=== PATIENT | female | born 1940 | race Caucasian/White ===

== ENCOUNTER 2023-11-09 23:53 | Inpatient (IN) | payer OTHER, SELFPAY ==
[2023-11-09 19:40] VITALS: BP 130/75
[2023-11-09 19:53] VITALS: BP 92/58
[2023-11-09 20:00] VITALS: BMI 24.4
[2023-11-09 20:01] VITALS: BP 121/64
[2023-11-09 20:31] LABS: % Basophils 0.5 % (0-2); % Eosinophils 0.3 % (0-6); % Immature Granulocytes 1.9 % (0-0.5); % Lymphocytes 16.3 % (20.5-51.1); Absolute Immature Granulocytes 0.1 10^3/uL (0-0.05); Absolute Lymphocytes 0.6 10^3/uL (1.2-3.4); Absolute Monocytes 0.6 10^3/uL (0.1-0.6); Absolute Neutrophils 2.5 10^3/uL (1.4-6.5); Hematocrit 41.2 % (37.0-47.0); Hemoglobin 13.6 g/dL (12.0-16.0); Mean Corpuscular Hgb 27.8 pg (27.0-31.0); Mean Corpuscular Volume 84.3 fL (81.0-99.0); Nucleated Red Blood Cells % 0 %; Platelet Count 130 10^3/uL (130-400); Red Blood Cell Count 4.89 10^6/uL (4.20-5.40); Red Cell Dist. Width 21.2 % (11.5-14.5); White Blood Cell Count 3.7 10^3/uL (4.8-10.8)
--- NOTE | 2023-11-09 20:54 | ED.GENMED ---
History of Present Illness
General
Chief Complaint: Abdominal Symptoms
Source: patient
Exam Limitations: none
Time Seen by Provider: 11/09/23 20:47
Travel History
Have you had any contact with someone who has COVID-19?: No
Do you have any symptoms of coronavirus? Fever > 100 degrees, chills, cough, shortness of breath, sore throat, loss of taste or smell, muscle aches, or headache?: No
History of Present Illness
History of Present Illness:
See MDM
Past History
Past History
ED Past Medical History: Cancer, HTN and Hypercholesterolemia
ED Past Surgical History: Gynecological
Social History
Tobacco: Non-smoker
Alcohol: None
Phy Exam
Physical Exam
Physical Exam:
See MDM
Course
Orders/Labs/Results
Orders:
Orders
11/09/23 19:39
Electrocardiogram (*1) Urgent
Reason for Study: Abdominal Pain
EKG- Treatment ONCE
IV Insert/Care/Rem.- Treatment PRN
Urinalysis Reflex To Culture Urgent
Date Specimen was Collected: 11/09/23
Time Specimen was Collected: 19:39
11/09/23 20:18
Basic Metabolic Panel Urgent
Complete Blood Count/With Diff Urgent
Lipase Urgent
11/09/23 20:51
0.9% Sodium Chloride 1000 ml [Nss] 1,000 ml IV BOLUS
11/09/23 20:52
CT Abd/pel Without Iv Or Oral Urgent
Comment: changed per attending due to lab trends
Reason For Exam: Mid abd pain, decreased PO intake
11/09/23 20:56
CMP [Comprehensive Metabolic Panel] Urgent
11/09/23 22:21
Electrocardiogram (*1) Urgent
Reason for Study: Chest Pain
EKG- Treatment ONCE
11/09/23 22:27
NT-proBNP Urgent
Troponin I Urgent
11/09/23 23:04
PTT Urgent
Comment: Obtain baseline before beginning heparin infusion if not already collected
Aspirin Chewable [Low Strength Aspirin] 324 mg PO NOW STA
Pharmacy Request to Place See Dose Instructions PO NOW STA
Discontinue all Active Warfarin orders?: Yes
Nursing to Place Non Medication Order As Directed
Physician Order: PTT 6 hours after initial start of Heparin infusion
11/09/23 23:05
Furosemide [Lasix] 20 mg IV NOW STA
Heparin 3,500 units IV NOW STA
11/09/23 23:15
Heparin 33013 Units/250 ml 25,000 units in 250 ml IV PER PROTOCOL
Weight to be used for heparin protocol in kilograms (kg):: 58.6
Protocol:: Cardiac Tx/Acute Coronary
PTT Goal Range to be used:: PTT 73 to 111 seconds
Order type:: Initial
INITIAL Infusion Dose (UNITS/KG/hr) & then follow protocol:: 12 units/kg/hr
Infusion Dose in UNITS/hr & then follow protocol (UNITS/hr):: 700
INFUSION RATE in mL/hr & then follow protocol (mL/hr):: 7
PTT less than or equal to 64 seconds:: Increase rate by 200 units/hr (+ 2 mL/hr)
PTT 64.1 to 72.9 seconds:: Increase rate by 100 units/hr (+ 1 mL/hr)
PTT 73 to 111 seconds:: Target Range. No change in rate.
PTT 111.1 to 130.9 seconds:: Decrease rate by 100 units/hr (- 1 mL/hr)
PTT 131 to 199.9 seconds:: HOLD for 1 hr. Then decrease rate by 200 units/hr (- 2 mL/hr)
PTT greater than or equal to 200 seconds:: HOLD for 2 hrs & Notify Provider. Then decrease by 200 units/hr (-
2 mL/hr)
Lab follow-up:: Each change, PTT q6h until 2 consecutive are therapeutic. Then PTT
daily.
11/09/23 23:[address] See Dose Instructions IV DIRECTED
Abnormal Lab Results
11/09/23 11/09/23 11/09/23
20:18 20:56 22:27
WBC 3.7 L 10^3/uL
(4.8-10.8)
RDW 21.2 H %
(11.5-14.5)
MPV 12.0 H fL
(7.4-10.4)
Abs Immat Gran (auto) 0.1 H 10^3/uL
(0-0.05)
Absolute Lymphs (auto) 0.6 L 10^3/uL
(1.2-3.4)
Immature Gran % 1.9 H %
(0-0.5)
Lymphocytes % 16.3 L %
(20.5-51.1)
Monocytes % 15.0 H %
(1.7-9.3)
Potassium 5.2 H mmol/L
(3.5-5.1)
Chloride 112 H mmol/L 108 H mmol/L
(98-107) (98-107)
Carbon Dioxide 13 L* mmol/L 18 L mmol/L
(22-30) (22-30)
BUN 53 H mg/dl 56 H mg/dl
(7-17) (7-17)
Creatinine 1.3 H mg/dL 1.4 H mg/dL
(0.6-1.0) (0.6-1.0)
AST 48 H U/L
(14-36)
ALT 36 H U/L
(0-35)
Troponin I 0.134 H* ng/ml
11/09/23 20:18
11/09/23 20:56
Vital Signs
Initial and Last Documented VS:
Initial Vital Signs
Temp Pulse Resp BP Pulse Ox
97.8 F 107 15 130/75 95
11/09/23 19:40 11/09/23 19:40 11/09/23 19:40 11/09/23 19:40 11/09/23 19:40
Last Documented Vital Signs
Temp Pulse Resp BP Pulse Ox
97.8 F 78 23 110/65 95
11/09/23 19:40 11/09/23 22:15 11/09/23 22:15 11/09/23 22:04 11/09/23 19:40
MDM/Problems Addressed
Differential Diagnosis Includes:
HPI and MDM Narrative:
83-year-old female presenting for generalized abdominal pain. This been ongoing for 3 weeks or so. Family at bedside indicating that she looks different and more fatigued. Patient has dry mucous membranes. I questioned p.o. intake. She
acknowledges she has not been eating or drinking. Patient also worried about bilateral swollen legs. She states that has worsened over the past week. She has not had a bowel movement in a few days which is abnormal for her
Physical exam
General: Weak and fatigued
HEENT: protecting airway. Very dry mucous membranes
Neck: appears supple
CV: No evidence of cyanosis. Regular rate, irregular rhythm
Resp: No accessory muscle use
Abd: Non-distended. Mild mid abd pain
Extremities: +3 pitting edema b/l legs
Neuro: alert
Psych: Flat affect
Skin: Intact
Problems Addressed including Acute and Chronic Conditions affecting care:
1. Generalized abdominal pain
Acuity: acute
Prognosis: stable
Details: Given age and complaint, will obtain CT
2. Congestive heart failure
Acuity: acute
Prognosis: unstable
Details: Given the pleural effusions and the elevated troponin, patient started on IV heparin. 20 mg of Lasix given for mild shortness of breath
Updates
Initial chest x-ray was concerning for possible STEMI. However, I believe this was artifact. Repeat EKG shows no evidence of STEMI
Patient found to have an elevated BNP and troponin. Will give aspirin and start heparin. Concern for ACS.
Differential Diagnosis (but not limited to): Colitis, pneumonia constipation
Testing considered: D-dimer
Drug therapy (if applicable): OTC meds, please see d/c instruction regarding Rx drugs
Amount and/or Complexity of Data Reviewed
Clinical info obtained from: Patient
External data reviewed: N/A
Labs I independently reviewed (but not limited to): Low bicarb, elevated creatinine
Radiology: The CT scan was personally and independently reviewed. In addition, official CT report reviewed.
Pulse Ox: not hypoxic
EKG independently reviewed: A-fib, normal axis, ST depressions laterally, no STEMI
Paper Processing Machine Helper: A-fib
Critical Care: The high probability of a clinically significant, sudden or life threatening deterioration of the cardiopulmonary system(s) required my full and direct attention, intervention and personal management. The aggregate critical care time
was 33 minutes. This time is in addition to time spent performing reported procedures but includes the following:
[x] Data Review and interpretation
[x] Patient assessment and monitoring of vital signs
[x] Documentation
[x] Medication orders and management
Risk of Complication:
Social Determinants of health: Good social support
Discussed with other providers: Hospitalist
Escalation of Care includes Admit/Obs: Given the concern for new A-fib with evidence of heart failure, will admit
Occasional wrong word or 'sound a like' substitutions may have occurred due to the inherent limitations of voice recognition software. Read the chart carefully and recognize, using context, where substitutions have occurred.
*Critical Care Note
Total Time (30-74mins, 75-104mins- exclusive of procedures): 33 min
ED Attending Note
-
Portions of this chart may have been created with voice recognition software.� Occasional wrong word or��sound alike� substitutions may have occurred due to the inherent limitations of voice recognition software.
Discharge Plan
Departure
Patient Disposition: Admit
Date of Disposition: 11/09/23
Time of Disposition: 23:13
Admit to: Telemetry
Presentation/result/management discussed w/ accepting MD/DO: Hospitalist
Patient with high blood pressure during this ER visit?: No
Discharge Problem:
New onset a-fib, Ascites, Pleural effusion
Prescriptions:
No Action
atorvastatin 10 MG tablet
50 mg PO QPM
cholecalciferol (vitamin D3) 2,000 UNITS tablet
2,000 units PO DAILY
mupirocin 1 APPLIC ointment
1 applic intranasal BID Qty: 1 0RF
Patient Comments:
started bid on 12/03/20 , nurse will apply this am
sennosides [senna] 1 TABLET tablet
2 tab PO BID 0RF
aspirin 325 MG tablet
325 mg PO DAILY Qty: 28 0RF
Rx Instructions:
Take daily x4 weeks for blood clot prevention
docusate sodium 100 MG capsule
100 mg PO BID 0RF
gabapentin 100 MG capsule
200 mg PO TID Qty: 30 0RF
oxycodone 5 MG tablet
5 mg PO Q6HPRN PRN (Reason: moderate-severe pain) Qty: 25 0RF
Rx Instructions:
1 tab moderate pain or 2 if pain severe
Dx total joint replacement
ongoing therapy
amlodipine 5 MG tablet
5 mg PO QPM Qty: 0 0RF
Rx Instructions:
Hold if systolic blood pressure <130 while on Oxycodone
acetaminophen [Tylenol Extra Strength] 500 MG tablet
1,000 mg PO Q6H Qty: 0 0RF
Rx Instructions:
Do not exceed >4000 mg daily.
Referrals:
Eagle Plunkett MD [Family Provider] -
Interventions
Interventions:
*Risk Screen - Suicide Last Done: 11/09/23 19:40
*General Assessment Last Done: 11/09/23 19:40
*Neglect/Abuse Screening Last Done: 11/09/23 19:40
ED- Fall Risk Assessment Last Done: 11/09/23 20:00
*ED COVID-19 Vaccine History Last Done: 11/09/23 19:40
MX-Wiusnb-Qkoirfyskg Assessment Last Done: 11/09/23 20:00
[2023-11-09] MEDS: NSS 1000 IV (20:58)
[2023-11-09 21:00] VITALS: BP 108/60
[2023-11-09 21:24] LABS: Blood Urea Nitrogen 53 mg/dl (7-17); Calcium 9.1 mg/dl (8.4-10.2); Chloride 112 mmol/L (98-107); Estimated Creatinine Clearance 24 ml/min; Glucose 83 mg/dl (70-99); Sodium 137 mmol/L (135-145)
[2023-11-09 21:26] LABS: Carbon Dioxide 13 mmol/L (22-30)
[2023-11-09 21:28] LABS: ALT (SGPT) 36 U/L (0-35); AST (SGOT) 48 U/L (14-36); Albumin 3.5 g/dl (3.5-5.0); Alkaline Phosphatase 108 U/L (38-126); Blood Urea Nitrogen 56 mg/dl (7-17); Calcium 9.3 mg/dl (8.4-10.2); Carbon Dioxide 18 mmol/L (22-30); Chloride 108 mmol/L (98-107); Estimated Creatinine Clearance 22 ml/min; Glucose 88 mg/dl (70-99); Potassium 5.2 mmol/L (3.5-5.1); Sodium 141 mmol/L (135-145); Total Bilirubin 1.3 mg/dl (0.2-1.3); eGFR 36.87
[2023-11-09 21:34] LABS: Lipase 33 U/L (23-300)
[2023-11-09 22:04] VITALS: BP 110/65
[2023-11-09 22:58] LABS: NT-proBNP 9390 pg/ml; Troponin I 0.134 ng/ml
[2023-11-09 23:00] VITALS: BP 119/87
[2023-11-09 23:36] LABS: APTT 25.7 Sec (23.4-35.0)
--- NOTE | 2023-11-09 23:55 | HPS.HSE ---
Family Physician
-
Family Physician: Eagle Plunkett
Chief Complaint
-
Abdominal Pain
History of Present Illness
Patient is an 83y F with PMH significant for hypertension and dyslipidemia who presents to ED complaining of abdominal pain. Patient states that she developed L sided abdominal pain about one week ago. Pain has been fairly constant since that
time. She denies any fevers / chills, N/V, diarrhea, black or bloody stools. No recent sick contacts with similar symptoms. Patient states that her appetite has been very poor secondary to the pain. She presented to the ED this evening for
further evaluation.
Patient denies any prior history of similar symptoms.
She states that she has also had a dry, hacking cough for the past week or so. No shortness of breath.
She has also noted swelling in the feet / ankles which is also new for her.
No recent changes in medications.
Medical History
Past Medical History
Past Medical History: Reports Other
Additional Past Medical History:
Hypertension.
CKD III
Breast cancer - status post left lumpectomy and sentinel node biopsy
Skin Cancer
Chronic leukopenia.
Past Surgical History: Reports Other
Additional Past Surgical History:
Right knee arthroscopy
Right TKA
Left wrist ORIF
Left Lumpectomy
Fibroid tumor excision from uterus.
Cataracts
Social History
Tobacco: Non-smoker
Alcohol: None
Drug: None
Family History
Family History: Not pertinent
Allergies / Home Medications
Allergies reflects when Allergies were last updated in [facility].
Home Medications with original date entered in [facility]
Allergy/Medication List:
Allergies
Allergy/AdvReac Type Severity Reaction Status Date / Time
No Known Allergies Allergy Verified 12/07/20 07:27
Home Medications
cholecalciferol (vitamin D3) 50 mcg (2,000 unit) tablet 2,000 units PO DAILY 11/11/20
amlodipine 5 mg tablet 5 mg PO QPM Blood pressure ##0 12/08/20
atorvastatin 40 mg tablet 40 mg PO QPM 11/09/23
Review of Systems
-
History Source: Patient
A 12 point ROS was completed and negative except as noted: Yes
Constitutional: Reports Fatigue; Denies Fever or Chills
EENT: Reports Other (Dry Mouth); Denies Sore Throat
Respiratory: Reports Cough; Denies Hemoptysis or Trouble Breathing
Cardiac: Reports Palpitations; Denies Chest Pain, Diaphoresis or Syncope
Abdomen/GI: Reports Abdominal Pain and Anorexia; Denies Nausea, Vomiting, Diarrhea, Bloody Stools or Black Stools
: Denies Dysuria, Frequency or Flank Pain
Musculoskeletal: Reports Edema; Denies Joint Pain
Neurological: Denies Dizzy or Headache
Psych: Denies Depression or Anxiety
Physical Exam
Vital Signs
Vital Signs
Temp Pulse Resp BP Pulse Ox
97.8 F 78 24 119/87 95
11/09/23 19:40 11/09/23 23:15 11/09/23 23:15 11/09/23 23:00 11/09/23 19:40
Physical Exam
General: Other (83y F in mild distress secondary to pain.)
HEENT: PERRLA and Other (Very dry MM. No JVD.)
Respiratory: Other (Decreased BS and dullness to percussion at the bases. Few basilar rales.)
Cardiac: S1/S2 and Irregular Rhythm; No Murmur
GI: Soft, Non Distended, Normal Bowel Sounds and Other (Tenderness L abdomen without rebound. Pos BS.)
Musculoskeletal: No Clubbing, No Cyanosis and Other (2-3+ pitting edema b/l LE to the knee.)
Neuro: AO x 3
Laboratory Results
-
11/09/23 20:18
11/09/23 20:56
Laboratory Results
APTT 25.7 Sec (23.4-35.0) 11/09/23 23:10
Total Bilirubin 1.3 mg/dl (0.2-1.3) 11/09/23 20:56
AST 48 U/L (14-36) H 11/09/23 20:56
ALT 36 U/L (0-35) H 11/09/23 20:56
Alkaline Phosphatase 108 U/L (38-126) 11/09/23 20:56
Troponin I 0.134 ng/ml H* 11/09/23 22:27
Lipase 33 U/L (23-300) 11/09/23 20:18
Impression/Plan
-
A/P: Patient is an 83y F with PMH significant for hypertension and dyslipidemia who presents to ED complaining of abdominal pain x 1 week.
Enteritis
Abdominal Pain secondary to the above
- Admit for further evaluation and treatment.
- ? viral v ischemic v inflammatory.
- Supportive care / pain control for now.
- Follow for any clinical changes, diarrhea, fevers, etc.
- Check lactate level and avoid hypotension.
- Check COVID status given dry cough and abdominal symptoms.
Anasarca
- Patient with bilateral pleural effusions, LE edema and minimal ascites seen on imaging.
- This despite the fact that she appears intravascularly depleted with acidosis, hyperkalemia and DEREK.
- Would hold further diuretic for now.
- Evaluate edema with TFTs, Echo, etc.
- Cardiology evaluation.
Arrhythmia
Abnormal Troponin - Unknown Type
- Patient with EKG showing A-Fib versus 2nd Degree AV Block Type I.
- LVH with repolarization abnormalities which do not appear changed from prior tracings.
- Troponin elevated at 0.134. Continue to follow to peak.
- Heparin started in the ED and will continue for now. Discontinue if no chest pain and troponin trends downward.
- Cardiology evaluation as noted above.
- Avoid AV bryce agents for now.
Anion Gap Metabolic Acidosis
Mild Hyperkalemia secondary to the above
CKD III
- Question etiology. ? ischemia related to abdominal pain.
- SCr is at / near known baseline.
- Check lactate level now.
- Patient is likely intravascularly dry despite edema on exam and would use IVFs if needed to maintain BP / perfusion.
- Hold on any diuresis for now.
- Follow for changes in labs / lytes / etc.
Benign Hypertension
- Hold BP medications acutely to avoid hypotension.
- Adjust regimen as needed during stay.
DVT Prophylaxis: On IV Heparin at present.
Code Status: Full
[2023-11-10] VITALS (12 sets, daily range): BP systolic 102–153; BP diastolic 44–88; BMI 26.3
[2023-11-10] MEDS: LASIX 20 MG IV (00:04)
[2023-11-10 00:21] LABS: Lactic Acid 4.7 mmol/L (0.7-2.0)
[2023-11-10] MEDS: NSS 500 IV (00:41)
[2023-11-10 00:51] LABS: COVID-19 Antigen Negative (Negative)
[2023-11-10] MEDS: ZOSYN 50 IV ×4 (00:52→18:00)
[2023-11-10] MEDS: HEPARIN 3500 UNITS IV (00:55)
[2023-11-10] MEDS: HEPARIN 25000 UNITS/250 ML IV (00:56)
--- NOTE | 2023-11-10 03:10 | PTCARENOTE ---
ax3 [place]ul[place] afib controlled- 2 liters - crackles at bases. frequent cough- bp wnl afebrile- purewick to collect urine. bedalrm for Safety
[2023-11-10] MEDS: NSS 1000 IV (03:13)
[2023-11-10 04:07] LABS: Hematocrit 40.5 % (37.0-47.0); Mean Corp Hgb Conc. 32.1 g/dL (33.0-37.0); Mean Corpuscular Volume 87.1 fL (81.0-99.0); Mean Platelet Volume 11.7 fL (7.4-10.4); Platelet Count 151 10^3/uL (130-400); Red Blood Cell Count 4.65 10^6/uL (4.20-5.40); Red Cell Dist. Width 21.4 % (11.5-14.5); White Blood Cell Count 5.1 10^3/uL (4.8-10.8)
[2023-11-10] MEDS: MORPHINE SULFATE 2 MG IV ×2 (04:09→18:56)
[2023-11-10 04:16] LABS: Erythrocyte Sed Rate 16 mm/hour (0-20)
[2023-11-10 04:31] LABS: ALT (SGPT) 39 U/L (0-35); AST (SGOT) 57 U/L (14-36); Albumin 3.6 g/dl (3.5-5.0); Alkaline Phosphatase 111 U/L (38-126); Blood Urea Nitrogen 55 mg/dl (7-17); Calcium 8.9 mg/dl (8.4-10.2); Carbon Dioxide 15 mmol/L (22-30); Chloride 111 mmol/L (98-107); Direct Bilirubin 0.3 mg/dl (0.0-0.4); Estimated Creatinine Clearance 27 ml/min; Glucose 89 mg/dl (70-99); Potassium 5.1 mmol/L (3.5-5.1); Sodium 144 mmol/L (135-145); Total Bilirubin 1.5 mg/dl (0.2-1.3); Total Protein 7.3 g/dl (6.3-8.2)
[2023-11-10 04:44] LABS: Lactic Acid 5.1 mmol/L (0.7-2.0); Troponin I 0.157 ng/ml
[2023-11-10] MEDS: DUONEB 3 ML INH (04:48)
--- NOTE | 2023-11-10 05:30 | PTCARENOTE ---
pt desated and went from room air to 6 liters quickly with almost non stop cough and coarse lung sounds- creative perfumer and md up to assess. iv fluids stopped. morphine given for pain and neb tx ordered by med- pt is in less distress and still requires 6
liters- afib 120's afebrile bp wnl- providers aware of trop increase and lactic increase. pt is stable at this time on 6 liters.
[2023-11-10 05:52] LABS: Urine Albumin Negative (Neg - Trace); Urine Bilirubin Negative (Negative); Urine Character Clear (Clear); Urine Color Yellow; Urine Glucose Negative (Negative); Urine Ketone Negative (Negative); Urine Leukocyte 1+ (Negative); Urine Nitrite Negative (Negative); Urine Occult Blood Negative (Negative); Urine Urobilinogen Negative (Neg - 1+)
[2023-11-10 07:04] LABS: APTT 93.2 Sec (23.4-35.0)
[2023-11-10 08:04] LABS: Urine Amorphous Seen; Urine Mucus Few
[2023-11-10 08:07] LABS: Urine Red Blood Cell 0-2 /HPF (0-2)
[2023-11-10 08:08] LABS: Urine Bacteria Moderate (Negative)
--- NOTE | 2023-11-10 08:10 | CON.CAR ---
Addendum entered and electronically signed by Jw Menjivar MD 11/10/23 10:43:
I saw and examined the patient.
The DEVULCANIZER TENDER's note was reviewed and I agree with the note.
Comment: 83F with HTN, HLD, and left sided breast cancer S/P lumpectomy (2019) presents with abdominal pain. She has no CP and tells me she has not had CP. Her main complaint is abdominal pain.
- Lactic acidosis ongoing
- b/l LE edema TTE pending
- nonischemic myocaridal injury trend trop
- Mobitz 1 no symptoms concerning for urgent PPM
Original Note:
Consultation
Consultation Request
Date/Time Consultation Requested: 11/10/23 02:30
Date/Time Consultation Performed: 11/10/23 07:50
Requesting Provider: Dr. Yuen
Performing Provider: JENNIFER Snowden for Dr. Menjivar
Reason for Consultation: Edema, Arrythmia
Medical History
-
Chief Complaint: Abominal pain
History of Present Illness:
Trudy Hickman is a 83-year-old female (seen by Dr. Gilbert in the past), with hypertension, dyslipidemia, iLBBB, and prior left-sided breast cancer s/p lumpectomy (2019) presented to the emergency department with a chief complaint of abdominal pain.
She reports it started as mild in severity more than 10 days ago. Over the past week it has gotten significantly worse. She has been unable to tolerate oral intake. She also was found to have bilateral lower extremity pitting edema. There was
concern for her abnormal EKG and troponin in the emergency department. She was started on a heparin drip. On telemetry this morning she has sinus tachycardia with Mobitz 1. She is still having persisting abdominal pain. Her lactic acid is
increasing. She is currently having no chest pain.
Past Medical History
Past Medical History: Cancer (Breast [left]), HTN and Hypercholesterolemia
Past Surgical History: Gynecological and Orthopedic
Social History
Tobacco: Non-Smoker
Alcohol: None
Drug: None
Living: Alone
Family History
Family History: Reviewed & Not Pertinent
Allergies / Home Medications
Allergy/AdvReac Type Severity Reaction Status Date / Time
No Known Allergies Allergy Verified 12/07/20 07:27
Medication Instructions Recorded Confirmed Type
cholecalciferol (vitamin D3) 50 2,000 units PO DAILY Supplement 11/11/20 11/09/23 History
mcg (2,000 unit) tablet
amlodipine 5 mg tablet 5 mg PO QPM Blood pressure ##0 12/08/20 11/09/23 Rx
atorvastatin 40 mg tablet 40 mg PO QPM High Cholesterol 11/09/23 11/09/23 History
Review of Systems
-
History Source: Patient
All other systems: Negative unless noted
Respiratory: No Symptoms
Cardiac: No Symptoms
Abdomen/GI: Abdominal Pain and Nausea
Musculoskeletal: Edema
Physical Exam
Vital Signs
Temp Pulse Resp BP Pulse Ox
97.8 F 96 29 127/66 90
11/10/23 02:53 11/10/23 06:18 11/10/23 06:18 11/10/23 06:18 11/10/23 06:18
Lab Results
11/10/23 03:52
11/10/23 03:51
Troponin I 0.157 ng/ml H* 11/10/23 03:52
Txw-C-Pvtbuzxefey Pept 9390 pg/ml 11/09/23 22:27
Physical Exam
General: Well Developed, Well Nourished, No Apparent Distress and Comfortable
HEENT: Normocephalic, Anicteric and Moist Mucous Membranes
Respiratory: Crackles (B/L bases)
Cardiac: S1/S2, Irregular Rhythm and Peripheral Edema (+2 pitting B/L LE edema)
Breast: Deferred by me
GI: Soft, Non Distended, Normal Bowel Sounds and Tender
Rectal: Deferred by Provider
Genito-urinary: No Costovertebral Tender
Musculoskeletal: No Clubbing and No Cyanosis
Skin: Warm and Dry
Neuro: AO x 3
Hematologic/Lymphatic: No Lymphadenopathy
Psych: Calm
Impression / Plan
-
Background: 83F with HTN, HLD, and left sided breast cancer S/P lumpectomy (2019) presents with abdominal pain
Enteritis
Lactic acidosis
-Climbing, per primary
-She is reporting abdominal pain and CT is abnormal
Mobitz I
-She is intermittently tachycardic, but she is acutely ill
-Follow telemetry
Abnormal troponin, non ischemic myocardial injury in the setting of acute illness
-Trend to peak
-Chest pain free
Edema, bilateral lower extremity
-Pitting edema which she reports is new
-Hold amlodipine, she has been on this 'for years'
-TTE ordered
Hypertension, hold amlodipine as above, mild cLVH on 2019 TTE
CKD, follow
iLBBB
Left sided breast cancer Stage IA s/p lumpectomy ([id number] G2 ER/KS positive HER2)
Data Reviewed
-
EKG: Report Reviewed by me (Sinus tachycardia with Mobitz I, rate 78)
Radiology: Report Reviewed by me (CXR: Left basilar opacification, likely combination of small left pleural effusion and adjacent atelectasis/consolidation.)
CT Scan: Report Reviewed by me (Abd/Pel: Suspected enteritis with bowel wall thickening of multiple small bowel loops in the left hemiabdomen, the overall evaluation of which is somewhat limited in the absence of oral and intravenous contrast.)
Labs: Labs Reviewed by me
Old Records: Reviewed
[2023-11-10 08:44] LABS: Lactic Acid 5.1 mmol/L (0.7-2.0)
[2023-11-10 09:41] LABS: Troponin I 0.169 ng/ml
[2023-11-10] MEDS: SODIUM BICARBONATE 1150 MEQ IV ×2 (09:56→18:00)
[2023-11-10] MEDS: PROTONIX IV 40 MG IV (09:57)
[2023-11-10] MEDS: NSS (PRESERVATIVE FREE) 10 ML IV (09:57)
--- NOTE | 2023-11-10 10:07 | PTCARENOTE ---
1902 Tele showing Mobitz 2 - EKG obtained and providers notified. Blood work drawn. IV Heparin infusing as ordered. Drowsy/ arousable BP 128/74
94% on 6L NC.
1000 Still drowsy but arousable follows commands, IVF w Bicarb infusing- IV Protonix given. She did ask for breakfast, explained NPO status. Remains on 6L NC she does drop to 87% when sound asleep comes up to 92 when cued to breathe. ECHO being
completed at bedside. BP 108/57.
--- NOTE | 2023-11-10 13:01 | CON.GI ---
Consultation
-
Date/Time Consultation Requested: 11/10/23 9:15am
Date/Time Consultation Performed: 11/10/23 1:02pm
Requesting Provider: William Costa
Performing Provider: Justo Reid
Reason for Consultation: abd pain, enteritis
Medical History
Chief Complaint / HPI
Chief Complaint: abd pain, enteritis
History of Present Illness:
Patient is an 83-year-old female who presents with abdominal pain over the last week that has progressed and led her to the ER. She denies any vomiting, diarrhea fever, chills. Prior to that she was asymptomatic. The pain is not necessarily
associated with eating. Her lactate was elevated and her bicarbonate was low on admission. She denies rectal bleeding. She denies any history of vascular disease or clots. No prior colonoscopy.
Past Medical History
Past Medical History: HTN and Other (CKD, breast CA, skin CA)
Past Surgical History: Orthopedic (R TKA, lumpectomy)
Social History
Tobacco: Non-Smoker
Alcohol: None
Family History
Family History: Reviewed & Not Pertinent
Allergies / Home Medications
Allergy/AdvReac Type Severity Reaction Status Date / Time
No Known Allergies Allergy Verified 12/07/20 07:27
Medication Instructions Recorded
cholecalciferol (vitamin D3) 50 2,000 units PO DAILY Supplement 11/11/20
mcg (2,000 unit) tablet
amlodipine 5 mg tablet 5 mg PO QPM Blood pressure ##0 12/08/20
atorvastatin 40 mg tablet 40 mg PO QPM High Cholesterol 11/09/23
Review of Systems
-
All other systems: A 12 pt ROS was Negative except as stated above in HPI
Vital Signs
Temp Pulse Resp BP Pulse Ox
97.4 F 96 29 127/66 90
11/10/23 11:48 11/10/23 06:18 11/10/23 06:18 11/10/23 06:18 11/10/23 06:18
Physical Exam
Exam
General: No Apparent Distress
HEENT: Normocephalic and Atraumatic
Respiratory: Non Labored Respirations
GI: Soft and Tender (mild mid abdominal tender, no rebound/guarding)
Skin: Warm and Dry
Results
WBC 5.1 10^3/uL (4.8-10.8) 11/10/23 03:52
Hgb 13.0 g/dL (12.0-16.0) 11/10/23 03:52
Hct 40.5 % (37.0-47.0) 11/10/23 03:52
MCV 87.1 fL (81.0-99.0) 11/10/23 03:52
Plt Count 151 10^3/uL (130-400) 11/10/23 03:52
Absolute Neuts (auto) 2.5 10^3/uL (1.4-6.5) 11/09/23 20:18
APTT 93.2 Sec (23.4-35.0) H 11/10/23 06:40
Sodium 144 mmol/L (135-145) 11/10/23 03:51
Potassium 5.1 mmol/L (3.5-5.1) 11/10/23 03:51
Chloride 111 mmol/L (98-107) H 11/10/23 03:51
Carbon Dioxide 15 mmol/L (22-30) L 11/10/23 03:51
BUN 55 mg/dl (7-17) H 11/10/23 03:51
Creatinine 1.3 mg/dL (0.6-1.0) H 11/10/23 03:51
Calcium 8.9 mg/dl (8.4-10.2) 11/10/23 03:51
Total Bilirubin 1.5 mg/dl (0.2-1.3) H 11/10/23 03:51
AST 57 U/L (14-36) H 11/10/23 03:51
ALT 39 U/L (0-35) H 11/10/23 03:51
Alkaline Phosphatase 111 U/L (38-126) 11/10/23 03:51
Lipase 33 U/L (23-300) 11/09/23 20:18
Diagnostic Image Results:
11/09/23 CT AP- suspected enteritis with thickening multiple small bowel loops in L hemiabdomen, limited w/o IV or oral contrast. Mild ascites. Small/moderate b/l pleural effusions and atelectasis. Cardiomegaly
Prior GI Procedures:
EGD:
Colonoscopy:
Assessment / Plan
-
Summary: 83yo female presents with abd pain over last week, progressed so she came to ER. Lacatate 4.7 and bicarb 13 on admission. Denies n/v, diarrhea, rectal bleeding. CT shows wall thickening of multiple small bowel loops in mid abd, limited
by lack of IV/PO contrast. Started on zosyn and heparin gtt.
Impression:
Abdominal pain
Metabolic acidosis, elevated lactate
Abnl CT- thickening SB loops L abdomen
Recommendations:
Continue supportive care, maintain BP
Trend labs- lactate, bicarb
Cont heparin, zosyn
Would like to check CTA to evaluate for mesenteric vessels, but Cr 1.3. Currently exam is benign. Hold on CT right now and reconsider if Cr allows
If she worsens, then would do CT with IV contrast more urgently.
-
-
Thank you for consultation and allowing me to participate in the patient's care. Please call the [facility] GI physician during the after hours with any questions or concerns.
[2023-11-10 14:18] LABS: Lactic Acid 4.7 mmol/L (0.7-2.0)
--- NOTE | 2023-11-10 15:30 | W.PN.HOSP.TC ---
Today's Communication/Plan
-
see outlined plan
Assessment / Plan
Assessment / Plan
Assessment:
Enteritis
Abdominal Pain secondary to the above
- ? viral v ischemic v inflammatory.
- continue IVF
- continue IV Zosyn, day 1. follow cultures
- follow lactate levels
- consider CT in AM if Cr improving
�
Anasarca
- Patient with bilateral pleural effusions, LE edema and minimal ascites seen on imaging.
- This despite the fact that she appears intravascularly depleted with acidosis, hyperkalemia and DEREK.
- Would hold further diuretic for now.
- hold Norvasc
- Echo: Small LV size with normal systolic function and no regional wall motion abnormalities. LVEF is 55 to 60% by visual estimation. Mild concentric LVH. Normal right ventricular size and function.Mild to moderate mitral regurgitation.
�Trace aortic regurgitation. Mild tricuspid regurgitation. Estimated pulmonary artery pressure of 30 mmHg. Assuming a right atrial pressure of 8 mmHg. Compared to prior from January 01, 2019, mitral regurgitation is now mild to
�moderate from trace.
- Cardiology following
Mobitz Type 1 AV block
Non-AR trop elevation
- trend trops
- continue IV Heparin - requires intensive monitoring
Anion Gap Metabolic Acidosis
Mild Hyperkalemia secondary to the above
CKD IIIb
- Question etiology.� ? ischemia related to abdominal pain.
- SCr is near known baseline.�
- Patient is likely intravascularly dry despite edema on exam and would use IVFs if needed to maintain BP / perfusion.
- Hold on any diuresis for now.
- Follow for changes in labs / lytes / etc.
Benign Hypertension
- Hold BP medications acutely to avoid hypotension.
- Adjust regimen as needed during stay.
elevated TSH, normal free T4
- given acute illness, hard to interpret, would repeat in 4-6 weeks when out of acute illness phase
DVT Prophylaxis:�IV Heparin
Code Status:�Full
Anticipated Discharge: > 48 hours
Subjective/Interval History
-
Date of Service: November 10, 2023
she reports pain improving, no nausea
remains on 6L
denies fever/chills, no CP or SOB
Objective Data
-
Labs:
Laboratory Results
11/09/23 11/10/23 11/10/23
20:18 03:51 03:52
WBC 5.1
Hgb 13.0
Hct 40.5
Plt Count 151
APTT
Sodium 137 144
Potassium [employer] 5.1
Chloride 112 H 111 H
Carbon Dioxide 13 L* 15 L
BUN 53 H 55 H
Creatinine 1.3 H 1.3 H
Glucose 83 89
Calcium 9.1 8.9
Total Bilirubin Cancelled 1.5 H
AST Cancelled 57 H
ALT Cancelled 39 H
Alkaline Phosphatase Cancelled 111
11/10/23 11/10/23 11/10/23
06:40 13:48 14:50
WBC
Hgb
Hct
Plt Count
APTT 93.2 H Cancelled Pending
Sodium
Potassium
Chloride
Carbon Dioxide
BUN
Creatinine
Glucose
Calcium
Total Bilirubin
AST
ALT
Alkaline Phosphatase
Vital Signs:
Vital Signs
Temp Pulse Resp BP Pulse Ox
97.4 F 79 22 115/67 92
11/10/23 11:48 11/10/23 14:53 11/10/23 14:53 11/10/23 14:53 11/10/23 14:00
Physical Exam
-
General: No Apparent Distress
HEENT: Normocephalic and Atraumatic
Respiratory: Negative Wheezes
Cardiac: Regular Rhythm and S1/S2
GI: Soft and Nontender
Neuro: AO x 3
Psych: Calm
Data Reviewed
-
Total Time Spent with Patient (in minutes): 42
Labs: Labs Reviewed by me
[2023-11-10 15:34] LABS: APTT 64.9 Sec (23.4-35.0)
[2023-11-10 15:44] LABS: Troponin I 0.186 ng/ml
--- NOTE | 2023-11-10 16:28 | PTCARENOTE ---
Mentation / VS unchanged through the day. Blood work d/w Dr. Costa. Dept on 6L NC as she desats when sleeping. Voided 500ml via purewick. IVF ran at 150ml/hr today - d/w attending- now running at 80ml/hr. IV Heparin increased per protocol-
monitor ptts. Maintaining NPO at this time- No BM this shift.
[2023-11-10 18:37] LABS: Lactic Acid 4.8 mmol/L (0.7-2.0)
[2023-11-10 18:47] LABS: Troponin I 0.178 ng/ml
[2023-11-11] VITALS (14 sets, daily range): BP systolic 97–143; BP diastolic 55–85; PULSE 118–123; O2SAT 100; BMI 26.8
[2023-11-11 01:18] LABS: Troponin I 0.208 ng/ml
[2023-11-11 01:25] LABS: Lactic Acid 4.6 mmol/L (0.7-2.0)
[2023-11-11] MEDS: ZOSYN 50 IV ×4 (01:28→20:23)
--- NOTE | 2023-11-11 01:55 | PTCARENOTE ---
Addendum entered by Peter Quintanilla RN 11/11/23 06:37:
Bladder scanned for 303ml
Original Note:
Pt had abdominal pain at start of shift, dayshift adminsitered ordered PRN morphine. Pt abdomen tender on palpation, bowel sounds decreased. Pain was re-assed by this RN and Pt visibly more comfortable and able to rest. Pt alert to person, place,
and situation. Pt family at bedside. Pt on 7L o2 SATs 94% overnight. Pt had no acute changes. Please see nursing shift assessment for full head to toe.
[2023-11-11 02:00] LABS: APTT 97.7 Sec (23.4-35.0)
[2023-11-11] MEDS: SODIUM BICARBONATE 1150 MEQ IV ×2 (08:21→20:27)
[2023-11-11] MEDS: HEPARIN 25000 UNITS/250 ML IV (08:24)
[2023-11-11] MEDS: NSS (PRESERVATIVE FREE) 10 ML IV (08:26)
[2023-11-11] MEDS: PROTONIX IV 40 MG IV (08:26)
--- NOTE | 2023-11-11 08:55 | W.PN.CD ---
Today's Communication / Plan
-
- lactic acid remains
- IV lasix 40 mg once, receiving volume
- does NOT need heparin gtt from a cardiac point of view
Impression / Plan
-
Background: 83F with HTN, HLD, and left sided breast cancer S/P lumpectomy (2019) presents with abdominal pain
Enteritis
Lactic acidosis
-remains ~ 4
-She is reporting abdominal pain and CT is abnormal
Mobitz I
-She is intermittently tachycardic, but she is acutely ill
-Follow telemetry
Abnormal troponin, non ischemic myocardial injury in the setting of acute illness
-Trend to peak
-Chest pain free, abdominal pain overnight
Edema, bilateral lower extremity and pleural effusion
-Pitting edema which she reports is new
- IV lasix 40mg this AM as she is getting volume and remains edematous
-TTE below
Hypertension, hold amlodipine as above, mild cLVH on 2018 TTE
CKD, follow
iLBBB
Left sided breast cancer Stage IA s/p lumpectomy ([id number] G2 ER/TX positive HER2)
TTE: CONCLUSIONS
�Small LV size with normal systolic function and no regional wall motion
�abnormalities.
�LVEF is 55 to 60% by visual estimation.
�Mild concentric LVH.
�Normal right ventricular size and function.
�Mild to moderate mitral regurgitation.
�Trace aortic regurgitation.
�Mild tricuspid regurgitation.
�Estimated pulmonary artery pressure of 30 mmHg. Assuming a right atrial
�pressure of 8 mmHg.
�Compared to prior from January 01, 2019, mitral regurgitation is now mild to
�moderate from trace.
Physical Exam
Vital Signs/Labs
Vital Signs
Temp Pulse Resp BP Pulse Ox
97.4 F 89 19 118/77 92
11/11/23 07:41 11/11/23 06:00 11/11/23 06:00 11/11/23 06:00 11/11/23 06:00
11/10/23 11/11/23 11/12/23
06:59 06:59 06:59
Actual Weight 139 lb 4.8 oz 141 lb 12.116 oz
APTT 97.7 Sec (23.4-35.0) H 11/11/23 00:29
Free T4 1.90 ng/dl (0.78-2.19) 11/10/23 03:51
11/09/23
22:27
Wst-M-Xhojilrpzln Pept 9390
LAB Results
11/09/23 11/10/23 11/10/23
22:27 03:52 08:20
Troponin I 0.134 H* 0.157 H* Cancelled
11/10/23 11/10/23 11/10/23
09:08 14:50 18:14
Troponin I 0.169 H* 0.186 H* 0.178 H*
11/11/23
00:47
Troponin I 0.208 H*
Physical Exam
Constitutional: No acute distress
EENT: Anicteric
Cardiovascular: Rhythm/rate is irregular and Pedal edema present
Respiratory: Respiratory effort normal and Crackles Present (Decreased breath sounds at bases.)
GI: Soft
Neuro/Psych: Alert and Oriented
Data Reviewed
-
Date of Service: November 11, 2023
EKG: Tracing Personally Visualized and interpreted
Echo: Tracing Personally Visualized and interpreted
Labs: Labs Reviewed by me
[2023-11-11 09:02] LABS: % Basophils 0.4 % (0-2); % Eosinophils 0.4 % (0-6); % Immature Granulocytes 1.3 % (0-0.5); % Lymphocytes 12.9 % (20.5-51.1); % Monocytes 15.9 % (1.7-9.3); % Neutrophils 69.1 % (42.2-75.2); Absolute Immature Granulocytes 0.1 10^3/uL (0-0.05); Absolute Lymphocytes 0.6 10^3/uL (1.2-3.4); Absolute Monocytes 0.7 10^3/uL (0.1-0.6); Absolute Neutrophils 3.2 10^3/uL (1.4-6.5); Hematocrit 38.8 % (37.0-47.0); Hemoglobin 12.7 g/dL (12.0-16.0); Mean Corp Hgb Conc. 32.7 g/dL (33.0-37.0); Mean Corpuscular Hgb 28.4 pg (27.0-31.0); Mean Corpuscular Volume 86.8 fL (81.0-99.0); Nucleated Red Blood Cells % 0 %; Platelet Count 134 10^3/uL (130-400); Red Blood Cell Count 4.47 10^6/uL (4.20-5.40); Red Cell Dist. Width 21.7 % (11.5-14.5); White Blood Cell Count 4.6 10^3/uL (4.8-10.8)
[2023-11-11 09:15] LABS: APTT 124.6 Sec (23.4-35.0)
[2023-11-11 09:25] LABS: Lactic Acid 4.5 mmol/L (0.7-2.0)
[2023-11-11 09:29] LABS: ALT (SGPT) 30 U/L (0-35); AST (SGOT) 48 U/L (14-36); Albumin 2.8 g/dl (3.5-5.0); Alkaline Phosphatase 87 U/L (38-126); Blood Urea Nitrogen 56 mg/dl (7-17); Carbon Dioxide 19 mmol/L (22-30); Chloride 108 mmol/L (98-107); Estimated Creatinine Clearance 20 ml/min; Glucose 74 mg/dl (70-99); Potassium 4.2 mmol/L (3.5-5.1); Total Bilirubin 1.1 mg/dl (0.2-1.3); Total Protein 5.9 g/dl (6.3-8.2); eGFR 27.27
[2023-11-11] MEDS: LASIX 40 MG IV (09:30)
[2023-11-11 09:36] LABS: Troponin I 0.208 ng/ml
--- NOTE | 2023-11-11 09:38 | PTCARENOTE ---
Pt had lumpectomy on l side does not know if lymph nodes were removed . Iv team was notified but states iv sites are fine unless lymph nodes were removed
--- NOTE | 2023-11-11 10:02 | W.PN.GI.CBS2 ---
Today's Communication / Plan
-
Cr up to 1.8 today
Lactate slightly lower at 4.5, bicarb improving 19
Her exam remains benign and I would like to hold off on CTA at this time due to rising Cr
We can do CTA more urgently if her clinical situation changes
Continue abx (zosyn) and anticoagulation (heparin gtt) for now
Assessment / Plan
-
Summary: 83yo female presents with abd pain over last week, progressed so she came to ER. Lacatate 4.7 and bicarb 13 on admission. Denies n/v, diarrhea, rectal bleeding. CT shows wall thickening of multiple small bowel loops in mid abd, limited
by lack of IV/PO contrast. Started on zosyn and heparin gtt.
Impression:
Abdominal pain
Metabolic acidosis, elevated lactate
Abnl CT- thickening SB loops L abdomen
Renal insufficiency
Subjective
Subjective
Date of Service: November 11, 2023
Pt denies abdominal pain. No BMs overnight
Objective
Data Reviewed
Laboratory Data:
Laboratory Results
11/11/23 08:51
11/11/23 08:51
Laboratory Results
APTT 124.6 Sec (23.4-35.0) H 11/11/23 08:51
Total Bilirubin 1.1 mg/dl (0.2-1.3) 11/11/23 08:51
AST 48 U/L (14-36) H 11/11/23 08:51
ALT 30 U/L (0-35) 11/11/23 08:51
Alkaline Phosphatase 87 U/L (38-126) 11/11/23 08:51
Lipase 33 U/L (23-300) 11/09/23 20:18
Vital Signs and I&O:
Vital Signs
Temp Pulse Resp BP Pulse Ox
97.4 F 84 19 97/60 92
11/11/23 07:41 11/11/23 09:30 11/11/23 06:00 11/11/23 09:30 11/11/23 06:00
I&O
11/10/23 11/11/23 11/12/23
06:59 06:59 06:59
Intake Total 2250 / 2250
Output Total 600 / 600
Balance 1650 / 1650
Physical Exam
Physical Exam
GI: Soft, Non Distended and Tender (mild tenderness mid abdomen to moderate palpation, no rebound/guarding)
[2023-11-11 10:08] LABS: Sodium 140 mmol/L (135-145)
--- NOTE | 2023-11-11 13:52 | W.PN.HOSP.TC ---
Today's Communication/Plan
-
continue IV Abx, anticoagulation, IVF
prn diuretics
monitor clinically
Assessment / Plan
Assessment / Plan
Assessment:
Enteritis
Abdominal Pain secondary to the above
- ? viral v ischemic v inflammatory.
- continue IVF
- continue IV Zosyn, day 2. follow cultures
- follow lactate levels
- consider CT urgently if clinical status changes, for now held off due to DEREK
�
Anasarca
- Patient with bilateral pleural effusions, LE edema and minimal ascites seen on imaging.
- This despite the fact that she appears intravascularly depleted with acidosis, hyperkalemia and DEREK.
- prn diuretics
- hold Norvasc
- Echo: Small LV size with normal systolic function and no regional wall motion abnormalities. LVEF is 55 to 60% by visual estimation. Mild concentric LVH. Normal right ventricular size and function.Mild to moderate mitral regurgitation.
�Trace aortic regurgitation. Mild tricuspid regurgitation. Estimated pulmonary artery pressure of 30 mmHg. Assuming a right atrial pressure of 8 mmHg. Compared to prior from January 01, 2019, mitral regurgitation is now mild to
�moderate from trace.
- Cardiology following
Mobitz Type 1 AV block
Non-VT trop elevation
- trend trops, seems peaked at .208
- continue IV Heparin - requires intensive monitoring
Anion Gap Metabolic Acidosis
Mild Hyperkalemia secondary to the above
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
- Question etiology. ? ischemia related to abdominal pain.
- continue IVF
- period doses of Lasix per Cardiology
- Follow for changes in labs/lytes/etc.
Benign Hypertension
- Hold BP medications acutely to avoid hypotension.
- Adjust regimen as needed during stay.
elevated TSH, normal free T4
- given acute illness, hard to interpret, would repeat in 4-6 weeks when out of acute illness phase
DVT Prophylaxis:�IV Heparin
Code Status:�Full
Anticipated Discharge: > 48 hours
Subjective/Interval History
-
Date of Service: November 11, 2023
denies abd pain
lactates remain elevated
Objective Data
-
Labs:
Laboratory Results
11/11/23 11/11/23
00:29 08:51
WBC 4.6 L
Hgb 12.7
Hct 38.8
Plt Count 134
APTT 97.7 H 124.6 H
Sodium 140
Potassium 4.2
Chloride 108 H
Carbon Dioxide 19 L
BUN 56 H
Creatinine 1.8 H
Glucose 74
Calcium 8.0 L
Total Bilirubin 1.1
AST 48 H
ALT 30
Alkaline Phosphatase 87
Vital Signs:
Vital Signs
Temp Pulse Resp BP Pulse Ox
97.5 F 83 19 123/74 92
11/11/23 11:25 11/11/23 10:00 11/11/23 10:00 11/11/23 10:00 11/11/23 10:00
I&O
11/10/23 11/11/23 11/12/23
06:59 06:59 06:59
Intake Total 2250 / 2250 50 / 50
Output Total 600 / 600
Balance 1650 / 1650 50 / 50
Physical Exam
-
General: No Apparent Distress
HEENT: Normocephalic and Atraumatic
Respiratory: Crackles; Negative Wheezes
Cardiac: Irregular Rhythm
GI: Soft
Musculoskeletal: Edema, Right Lower Extrem and Edema, Left Lower Extrem
Neuro: AO x 3
Hematologic / Lymphatic: No Lymphadenopathy
Psych: Calm
Data Reviewed
-
Total Time Spent with Patient (in minutes): 42
Labs: Labs Reviewed by me
--- NOTE | 2023-11-11 14:04 | CM ---
Patient with Dx Enteritis, Abdominal Pain, Anasarca. O2 7L. NPO. Receiving IV w Bicarb, Heparin gtt, IV Zosyn. PT/OT/ST Evals pending.
Met with patient who resides alone in a 2 story house with no ARLEEN.
The patient has been independent in ADLs and ambulation using her SPC.
She says her friend Cheryl provides assistance as needed- she did not know her phone #. Her closest relative is her stepdaughter Kateryna.
DME - [facility]
Prior [facility]
No prior SNF
PCP [facility]
Pharmacy - [facility]
CM continuing to follow for d/c needs.
Plan consider contacting Kateryna, patient's stepdaughter.
Plan watch for home O2 needs.
Plan follow up after PT/OT Evals.
--- NOTE | 2023-11-11 15:06 | PTCARENOTE ---
Pt OOB to chair heparin as ordered IV fluids as ordered. Pt states she feels better OOB
[2023-11-11 16:21] LABS: APTT 65.4 Sec (23.4-35.0)
[2023-11-11 23:27] LABS: APTT > 200 Sec (23.4-35.0)
--- NOTE | 2023-11-11 23:35 | PTCARENOTE ---
Received call from lab, critical PTT result, >200. Per protocol, heparin gtt on hold for 2 hours, rate lowered by 200 units, house provider notified. Will restart heparin gtt at 1:30 am, at 600 units/hr.
[2023-11-12] VITALS (12 sets, daily range): BP systolic 99–165; BP diastolic 36–99; BMI 29.5
[2023-11-12] MEDS: ZOSYN 50 IV ×4 (01:35→18:21)
[2023-11-12] MEDS: SODIUM BICARBONATE 1150 MEQ IV ×2 (03:24→14:15)
[2023-11-12 05:12] LABS: % Basophils 0.5 % (0-2); % Immature Granulocytes 1.2 % (0-0.5); % Lymphocytes 11.6 % (20.5-51.1); % Monocytes 16.5 % (1.7-9.3); % Neutrophils 70.2 % (42.2-75.2); Absolute Immature Granulocytes 0.1 10^3/uL (0-0.05); Absolute Lymphocytes 0.5 10^3/uL (1.2-3.4); Absolute Monocytes 0.7 10^3/uL (0.1-0.6); Hematocrit 37.7 % (37.0-47.0); Hemoglobin 12.2 g/dL (12.0-16.0); Mean Corp Hgb Conc. 32.4 g/dL (33.0-37.0); Mean Corpuscular Hgb 28.2 pg (27.0-31.0); Mean Corpuscular Volume 87.3 fL (81.0-99.0); Nucleated Red Blood Cells % 0.5 %; Platelet Count 149 10^3/uL (130-400); Red Blood Cell Count 4.32 10^6/uL (4.20-5.40); Red Cell Dist. Width 21.9 % (11.5-14.5); White Blood Cell Count 4.3 10^3/uL (4.8-10.8)
[2023-11-12 05:36] LABS: ALT (SGPT) 33 U/L (0-35); AST (SGOT) 57 U/L (14-36); Albumin 2.9 g/dl (3.5-5.0); Alkaline Phosphatase 87 U/L (38-126); Blood Urea Nitrogen 62 mg/dl (7-17); Calcium 7.8 mg/dl (8.4-10.2); Carbon Dioxide 20 mmol/L (22-30); Chloride 105 mmol/L (98-107); Estimated Creatinine Clearance 16 ml/min; Glucose 69 mg/dl (70-99); Potassium 4.3 mmol/L (3.5-5.1); Sodium 142 mmol/L (135-145); Total Bilirubin 1.3 mg/dl (0.2-1.3); eGFR 20.32
--- NOTE | 2023-11-12 08:07 | PTCARENOTE ---
Pt with + bowel sounds this AM. Improvement from prior shift.
[2023-11-12] MEDS: PROTONIX IV 40 MG IV (09:21)
[2023-11-12] MEDS: NSS (PRESERVATIVE FREE) 10 ML IV (09:21)
--- NOTE | 2023-11-12 09:27 | W.PN.CD ---
Today's Communication / Plan
-
Trend lactic acid
Ongoing abdominal pain/distension per primary
Impression / Plan
-
Background: 83F with HTN, HLD, and left sided breast cancer S/P lumpectomy (2019) presents with abdominal pain
Enteritis
Lactic acidosis
-trend lactic acid
-She is reporting abdominal pain and CT is abnormal
Mobitz I
-She is intermittently tachycardic, but she is acutely ill
-Follow telemetry
Abnormal troponin, non ischemic myocardial injury in the setting of acute illness
-Trend to peak
-Chest pain free, abdominal pain overnight
Edema, bilateral lower extremity and pleural effusion
-Pitting edema which she reports is new
- Cr increased to 2.3, hold diuresis
-TTE below
Hypertension, hold amlodipine as above, mild cLVH on 2018 TTE
CKD, follow
iLBBB
Left sided breast cancer Stage IA s/p lumpectomy ([id number] G2 ER/MI positive HER2)
Subjective: abdominal pain overnight and this AM, continues to have no CP
TTE: CONCLUSIONS
�Small LV size with normal systolic function and no regional wall motion
�abnormalities.
�LVEF is 55 to 60% by visual estimation.
�Mild concentric LVH.
�Normal right ventricular size and function.
�Mild to moderate mitral regurgitation.
�Trace aortic regurgitation.
�Mild tricuspid regurgitation.
�Estimated pulmonary artery pressure of 30 mmHg. Assuming a right atrial
�pressure of 8 mmHg.
�Compared to prior from January 01, 2019, mitral regurgitation is now mild to
�moderate from trace.
Physical Exam
Vital Signs/Labs
Vital Signs
Temp Pulse Resp BP Pulse Ox
97.5 F 58 20 105/50 92
11/12/23 07:53 11/12/23 04:02 11/12/23 04:02 11/12/23 04:02 11/12/23 02:00
11/11/23 11/12/23 11/13/23
06:59 06:59 06:59
Actual Weight 141 lb 12.116 oz 155 lb 13.869 oz
11/12/23 04:42
11/12/23 04:42
APTT Cancelled 11/12/23 07:51
Free T4 1.90 ng/dl (0.78-2.19) 11/10/23 03:51
11/09/23
22:27
Frg-A-Iqfrsummoip Pept 9390
LAB Results
11/09/23 11/10/23 11/10/23
22:27 03:52 08:20
Troponin I 0.134 H* 0.157 H* Cancelled
11/10/23 11/10/23 11/10/23
09:08 14:50 18:14
Troponin I 0.169 H* 0.186 H* 0.178 H*
11/11/23 11/11/23
00:47 08:51
Troponin I 0.208 H* 0.208 H*
Physical Exam
Constitutional: No acute distress
EENT: Anicteric
Cardiovascular: Rhythm & rate is regular (tachycardic) and Pedal edema present
Respiratory: Respiratory effort normal (decreased b/s at bases )
GI: Soft and Distention present (decreased BS )
Neuro/Psych: AO x 3
Data Reviewed
-
Date of Service: November 12, 2023
EKG: Tracing Personally Visualized and interpreted
Labs: Labs Reviewed by me
[2023-11-12 09:32] LABS: APTT 48.2 Sec (23.4-35.0)
[2023-11-12 09:37] LABS: Lactic Acid 5.7 mmol/L (0.7-2.0)
[2023-11-12 09:49] LABS: Troponin I 0.302 ng/ml
--- NOTE | 2023-11-12 10:22 | W.PN.GI.CBS2 ---
Today's Communication / Plan
-
Lactate increased today to 5.7
Cr up to 2.3
Clinical situation is worsening. Discussed with RN and hospitalist. Will ask Renal for input to optimize renal protection for CTA
Concern for mesenteric ischemia. Depending on CTA results, may ask Surgery to see.
Assessment / Plan
-
Summary: 83yo female presents with abd pain over last week, progressed so she came to ER. Lacatate 4.7 and bicarb 13 on admission. Denies n/v, diarrhea, rectal bleeding. CT shows wall thickening of multiple small bowel loops in mid abd, limited
by lack of IV/PO contrast. Started on zosyn and heparin gtt.
Impression:
Abdominal pain
Metabolic acidosis, elevated lactate
Abnl CT- thickening SB loops L abdomen
Renal insufficiency
Subjective
Subjective
Date of Service: November 12, 2023
Pt O2 requirement increasing up to 10L. Reports abd pain when LLQ palpated. No BMs
Objective
Data Reviewed
Laboratory Data:
Laboratory Results
11/12/23 04:42
11/12/23 04:42
Laboratory Results
APTT 48.2 Sec (23.4-35.0) H 11/12/23 09:13
Total Bilirubin 1.3 mg/dl (0.2-1.3) 11/12/23 04:42
AST 57 U/L (14-36) H 11/12/23 04:42
ALT 33 U/L (0-35) 11/12/23 04:42
Alkaline Phosphatase 87 U/L (38-126) 11/12/23 04:42
Lipase 33 U/L (23-300) 11/09/23 20:18
Vital Signs and I&O:
Vital Signs
Temp Pulse Resp BP Pulse Ox
97.5 F 58 20 105/50 92
11/12/23 07:53 11/12/23 04:02 11/12/23 04:02 11/12/23 04:02 11/12/23 02:00
I&O
11/11/23 11/12/23 11/13/23
06:59 06:59 06:59
Intake Total 2250 / 2250 930 / 930
Output Total 600 / 600 600 / 600
Balance 1650 / 1650 330 / 330
Physical Exam
Physical Exam
GI: Soft and Tender (LLQ mild tender, no rebound or guarding)
--- NOTE | 2023-11-12 10:40 | PTCARENOTE ---
Rec'd pt this AM. Pt is lethargic, forgetful. Reports mild pain. O2 increased to 10L MF. notified.
--- NOTE | 2023-11-12 11:02 | W.PN.HOSP.TC ---
Today's Communication/Plan
-
Renal consult to optimize renal protection for CTA indicated more urgently due to worsening clinical situation
await discussion with family for GOC specifically also discuss contrast load for CTA with worsening DEREK on CKD
Assessment / Plan
Assessment / Plan
Assessment:
Enteritis
Abdominal Pain secondary to the above
- ischemic v inflammatory.
- continue IVF
- continue IV Zosyn, day 3. follow cultures
- continue IV Heparin for concern of mesenteric ischemia - requires intensive monitoring
- follow lactate levels - rising
- CTA now being considered urgently as clinical status has changed, but DEREK on CKD, clear risks for CKD progression. Nephrology consulted to optimize renal protection for CTA.
Anion Gap Metabolic Acidosis
Mild Hyperkalemia secondary to the above
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
- Question etiology. ? ischemia related to abdominal pain. vs ATN
- continue IVF
- hold Lasix further
- Renal consulted
�
Anasarca
- Patient with bilateral pleural effusions, LE edema and minimal ascites seen on imaging.
- This despite the fact that she appears intravascularly depleted with acidosis, hyperkalemia and DEREK.
- prn diuretics
- hold Norvasc
- Echo: Small LV size with normal systolic function and no regional wall motion abnormalities. LVEF is 55 to 60% by visual estimation. Mild concentric LVH. Normal right ventricular size and function.Mild to moderate mitral regurgitation.
�Trace aortic regurgitation. Mild tricuspid regurgitation. Estimated pulmonary artery pressure of 30 mmHg. Assuming a right atrial pressure of 8 mmHg. Compared to prior from January 01, 2019, mitral regurgitation is now mild to
�moderate from trace.
- Cardiology/Renal following
Acute hypoxic respiratory insufficiency
- suspect related to underlying abdominal process
- requiring 10L - monitor
Mobitz Type 1 AV block
Non-LA trop elevation
- trend trops; rise felt related to acute GI process
Benign Hypertension
- Hold BP medications acutely to avoid hypotension.
- Adjust regimen as needed during stay.
elevated TSH, normal free T4
- given acute illness, hard to interpret, would repeat in 4-6 weeks when out of acute illness phase
DVT Prophylaxis:�IV Heparin
Code Status:�Full
Anticipated Discharge: > 48 hours
Subjective/Interval History
-
Date of Service: November 12, 2023
abd pain increasing, LLQ. no BMs
O2 requirements increasing to 10 L
Objective Data
-
Labs:
Laboratory Results
11/11/23 11/12/23 11/12/23
22:31 04:42 07:51
WBC 4.3 L
Hgb 12.2
Hct 37.7
Plt Count 149
APTT > 200 H* Cancelled
Sodium 142
Potassium 4.3
Chloride 105
Carbon Dioxide 20 L
BUN 62 H
Creatinine 2.3 H
Glucose 69 L
Calcium 7.8 L
Total Bilirubin 1.3
AST 57 H
ALT 33
Alkaline Phosphatase 87
11/12/23 11/12/23 11/12/23
09:13 15:00 21:00
WBC
Hgb
Hct
Plt Count
APTT 48.2 H Pending Pending
Sodium
Potassium
Chloride
Carbon Dioxide
BUN
Creatinine
Glucose
Calcium
Total Bilirubin
AST
ALT
Alkaline Phosphatase
Vital Signs:
Vital Signs
Temp Pulse Resp BP Pulse Ox
97.5 F 86 18 107/85 92
11/12/23 07:53 11/12/23 10:00 11/12/23 10:00 11/12/23 10:00 11/12/23 02:00
I&O
11/11/23 11/12/23 11/13/23
06:59 06:59 06:59
Intake Total 2250 / 2250 930 / 930
Output Total 600 / 600 600 / 600
Balance 1650 / 1650 330 / 330
Physical Exam
-
General: No Apparent Distress
HEENT: Normocephalic and Atraumatic
Respiratory: Clear to Auscultation; Negative Wheezes
Cardiac: Regular Rhythm and S1/S2
GI: Soft and Tender (LLQ)
Musculoskeletal: No Edema
Neuro: AO x 3
Hematologic / Lymphatic: No Lymphadenopathy
Psych: Calm
Data Reviewed
-
Total Time Spent with Patient (in minutes): 51
Labs: Labs Reviewed by me
--- NOTE | 2023-11-12 11:10 | W.CON.NEPH ---
Consultation
-
Date/Time Consultation Requested: 11/12/23 0825
Date/Time Consultation Performed: 11/12/23 1100
Requesting Provider: Durga Geronimo
Performing Provider: Cindy German
Reason for Consultation: DEREK
Medical History
-
Chief Complaint: Abd pain
History of Present Illness:
Patient is an 83y F with PMH significant for hypertension on Amlodipine and dyslipidemia on statin who presents to ED complaining of abdominal pain on 11/08.� Patient states that she developed L sided abdominal pain about one week ago.� She
reportedly had a dry, hacking cough for the past week or so [employer].�
She has also noted swelling in the feet / ankles which is also new for her. Since admit her cr increasing steadily from 1.3 to 2.3 with decreased UOP. SHe had CT with out contrast on admit which shows enteritis. She also has persistent Lactic
acidosis at 5.7. She receiving bicarb IVF and intermittent lasix, she remains on O2 NC. She is confused today and unable to provide history most of the history is from chart and primary team. Daughter not available to talk, primary team called many
times.
Past Medical History
Hypertension.
CKD III
Breast cancer - status post left lumpectomy and sentinel node biopsy
Skin Cancer
Chronic leukopenia.
Dementia
Past Surgical History: Other (Right knee arthroscopy Right TKA Left wrist ORIF Left Lumpectomy Fibroid tumor excision from uterus. Cataracts)
Social History
Tobacco: Non-Smoker
Alcohol: None
Family History
unable to obtain pt is confused
Allergies / Home Medications
Allergy/AdvReac Type Severity Reaction Status Date / Time
No Known Allergies Allergy Verified 12/07/20 07:27
Medication Instructions Recorded Confirmed Type
cholecalciferol (vitamin D3) 50 2,000 units PO DAILY Supplement 11/11/20 11/09/23 History
mcg (2,000 unit) tablet
amlodipine 5 mg tablet 5 mg PO QPM Blood pressure ##0 12/08/20 11/09/23 Rx
atorvastatin 40 mg tablet 40 mg PO QPM High Cholesterol 11/09/23 11/09/23 History
Review of Systems
-
unable to obtain since pt is confused
Physical Exam
Vital Signs
Vital Signs
Temp Pulse Resp BP Pulse Ox
97.5 F 86 18 107/85 92
11/12/23 07:53 11/12/23 10:00 11/12/23 10:00 11/12/23 10:00 11/12/23 02:00
Lab Results
WBC 4.3 10^3/uL (4.8-10.8) L 11/12/23 04:42
RBC 4.32 10^6/uL (4.20-5.40) 11/12/23 04:42
Hgb 12.2 g/dL (12.0-16.0) 11/12/23 04:42
Hct 37.7 % (37.0-47.0) 11/12/23 04:42
Plt Count 149 10^3/uL (130-400) 11/12/23 04:42
Sodium 142 mmol/L (135-145) 11/12/23 04:42
Potassium 4.3 mmol/L (3.5-5.1) 11/12/23 04:42
Chloride 105 mmol/L (98-107) 11/12/23 04:42
Carbon Dioxide 20 mmol/L (22-30) L 11/12/23 04:42
BUN 62 mg/dl (7-17) H 11/12/23 04:42
Creatinine 2.3 mg/dL (0.6-1.0) H 11/12/23 04:42
eGFR 20.32 11/12/23 04:42
Glucose 69 mg/dl (70-99) L 11/12/23 04:42
Calcium 7.8 mg/dl (8.4-10.2) L 11/12/23 04:42
Rxd-G-Kyxualiodvp Pept 9390 pg/ml 11/09/23 22:27
Albumin 2.9 g/dl (3.5-5.0) L 11/12/23 04:42
Echo:11/09
TTE: CONCLUSIONS
�Small LV size with normal systolic function and no regional wall motion
�abnormalities.
�LVEF is 55 to 60% by visual estimation.
�Mild concentric LVH.
�Normal right ventricular size and function.
�Mild to moderate mitral regurgitation.
�Trace aortic regurgitation.
�Mild tricuspid regurgitation.
�Estimated pulmonary artery pressure of 30 mmHg. Assuming a right atrial
�pressure of 8 mmHg.
�Compared to prior from January 01, 2019, mitral regurgitation is now mild to
�moderate from trace.
11/10/23
Exams:� CT Abd/pel Without Iv Or Oral
PROCEDURE: CT Abdomen and Pelvis without IV Contrast
CLINICAL INDICATION: Mid abdominal pain. Decreased by mouth intake.
TECHNIQUE: A CT examination of the abdomen and pelvis was performed without intravenous contrast. Oral contrast was not administered. Coronal and sagittal reformatted images were obtained. Automatic exposure control radiation dose reduction
technology was utilized.
COMPARISON: Abdominal ultrasound 06/01/2020. CT pelvis 05/04/2020.
FINDINGS:
CHEST: Small to moderate bilateral pleural effusions. Bibasilar atelectasis. Cardiac enlargement.
ABDOMEN:
The unenhanced liver, gallbladder, bile ducts, spleen, and bilateral adrenal glands are unremarkable. The pancreas is atrophic. Chronic bilateral renal cortical thinning without evidence for hydronephrosis or nephrolithiasis.
The abdominal aorta is normal in caliber and contains mild calcified atherosclerosis.
Mild abdominopelvic ascites.
Wall thickening of multiple bowel loops in the left hemiabdomen suspicious for an enteritis. No bowel obstruction. No extraluminal free air or fluid collection.
PELVIS: The urinary bladder, uterus, and adnexa are unremarkable.
SKELETON: Chronic advanced degenerative changes of the spine and bilateral hips. Grade 1 degenerative anterolisthesis of L3 on L4.
IMPRESSION:
1. Suspected enteritis with bowel wall thickening of multiple small bowel loops in the left hemiabdomen, the overall evaluation of which is somewhat limited in the absence of oral and intravenous contrast.
2. Mild abdominopelvic ascites.
3. Small to moderate bilateral pleural effusions and bibasilar atelectasis.
4. Cardiomegaly.
EXAMINATION:� Portable AP upright radiograph of the chest.
INDICATION: Hypoxia, congestion.
COMPARISON: 05/02/2019.
FINDINGS: Patient is slightly rotated to the right. The projection is lordotic. There is opacification of the left base, likely combination of small left pleural effusion and adjacent atelectasis/consolidation. Right lung is clear. There is no
pneumothorax. There is skinfold artifact over the mid left hemithorax. Apparent cardiomegaly is likely exaggerated by the AP technique, hypoaeration, and were seen. Mediastinal silhouette and pulmonary vasculature within normal limits. No acute
osseous abnormality is seen.
IMPRESSION: Left basilar opacification, likely combination of small left pleural effusion and adjacent atelectasis/consolidation.
Electronically signed by Eagle Barraza DO 11/10/2023 8:12 AM
Physical Exam
General: Awake, Alert and No Distress
HEENT: EOMI
Respiratory: Clear (decreased bilat)
Cardiac: S1/S2, Regular Rate/Rhythm (irregular) and Murmur
Abdomen: Soft and Nontender
Musculoskeletal: No Cyanosis and Edema (1+)
Skin: No Rash
Neuro: Nonfocal/Grossly Intact
Psych: Other (unable to assess due to confusion )
Assessment/Plan
-
IMP:
DEREK with CKD [id number] cr 1.2
Enteritis
Abdominal Pain secondary to the above
Anasarca-bilateral pleural effusions, LE edema and minimal ascites seen on imaging.
Arrhythmia-MObitz1
Abnormal Troponin - Unknown Type
Met acidosis-LActic Acidosis
mildly elevated LFTs
Benign Hypertension
Left sided breast cancer Stage IA s/p lumpectomy ([id number] G2 ER/PA positive HER2)
Hypoalbuminemia
Dementia
PLan:
A/w abd pain , noted enteritis on CT with out contrast on admit now persistent L acidosis and DEREK
DEREK -with bland UA on admit, decreased UOP likely suspect evolving to ATN from acute illness
recheck UA and U lytes, bladder scan only ~100cc
She seem to have edema but concern might be intrasvascularly dry, has no JVD on supine
mild hypoglycemia this am labs so would change iVF to D5 bicarb
plan to have CTA per GI with persistent L acidosis to r/o bowel ischemia
Bp are soft holding all BP meds, prn pressors to keep MAP>65
Trop elevated on heparin gtt, cards follows , echo noted normal EF
High risk of AVE and HD requirement if she has contrast for CT
no modifiable risk factor at this time
spoke with step daughter in detail, she is undecided about CT option
she would like to speak with other family member
She also planning to contact PCP office for living will tomorrow
d/w primary and GI
d/w nursing
Data Reviewed
-
Radiology: Report Reviewed by me
CT Scan: Report Reviewed by me
Medical Tests (Nuc Med, Echo etc): Report Reviewed by me, Discussed with Physician and Discussed with Family
[2023-11-12 12:25] LABS: Osmolality Urine 374 mOsm/kg (300-900)
[2023-11-12 12:39] LABS: Urine Protein 39 mg/dl; Urine Sodium 29 mmol/L (30-90)
[2023-11-12 12:40] LABS: Urine Uric Acid 30.7 mg/dl
[2023-11-12 12:49] LABS: Body Fluid for Eosinophils No Eosinophils seen
[2023-11-12 13:02] LABS: Protein/creatinine Ratio 0.5
[2023-11-12 15:18] LABS: Lactic Acid 5.5 mmol/L (0.7-2.0)
[2023-11-12 15:27] LABS: APTT 71.5 Sec (23.4-35.0)
[2023-11-12 15:32] LABS: Troponin I 0.321 ng/ml
--- NOTE | 2023-11-12 17:04 | PTCARENOTE ---
Pt able to wean O2 to 6L NC. Sat 94%. more awake but confused. Per family, this is not her baseline. At baseline pt drives and lives alone, takes care of her animals and does all self care independently. Family discussing comfort care as an option
at this time.
--- NOTE | 2023-11-12 18:26 | W.PN.UPDATE ---
Update Note
Progress Note Update
d/w Kateryna stepdaughter - expressed concern for developing sepsis, ongoing lactic acidosis, hypoxia requiring 10 L. Also next diagnostic step would be CTA but risk to develop progressive DEREK requiring HD. Recommended comfort measures - family
agrees. Transfer to .
[2023-11-12] MEDS: ATIVAN 1 MG IV (18:39)
[2023-11-12] MEDS: MORPHINE SULFATE 1 MG IV ×2 (18:45→23:59)
--- NOTE | 2023-11-12 19:16 | PTCARENOTE ---
Dr. Costa met with family. Comfort care/DNR in place. Pt abhay now HR 30s to 50s. Awake, anxious. Morphine and Ativan given as ordered. pt more comfortable now. family at bedside.
[2023-11-12] MEDS: MORPHINE SULFATE 2 MG IV (20:10)
[2023-11-13] VITALS: BP 148/40
[2023-11-13] MEDS: ATIVAN 1 MG IV (00:06)
[2023-11-13] MEDS: MORPHINE SULFATE 1 MG IV (02:49)
--- NOTE | 2023-11-13 03:40 | W.PN.DEATH ---
Pronouncement of
-
Called to see patient to pronounce.
No spontaneous heart tones or respirations noted.
Patient not responsive to verbal stimuli.
Patient is pronounced .
Time of : 03:22
Date of : 11/13/23
Family Notified: Yes (Kateryna was notified and has chosen to not come in.)
--- NOTE | 2023-11-13 04:19 | PTCARENOTE ---
Pt's family has been at bedside throughout the shift. Pt has been unresponsive with complete heart block on the monitor. Medicated for comfort multiple times throughout the shift. At 03:22 pt noted to have no respirations and not heart beat by
auscultation and monitor showing asystole. JENNIFER Sheriff notified and was up to see pt and pt was pronounced . Provided family at bedside with emotional support and comfort try through shift. Post mortum care given.
--- NOTE | 2023-11-13 19:48 | W.PN.UPDATE ---
Update Note
Progress Note Update
Grand-daughter Zeke Mansfield at [phone] requested call back regarding this patient's . [place] called at 19411/13/23 and left message with return phone number and instructions to call me back to discuss.
== END 2023-11-13 06:43 | disposition expired | DRG 683 ==
LOC: IMU 23:53
PROVIDERS: Emergency Medicine; Internal Medicine; Nurse Practitioner Gerontology; ADMITTING PHYSICIAN Hospitalist; ATTENDING PHYSICIAN Internal Medicine; CONSULT PHYSICIAN Internal Medicine; CONSULT PHYSICIAN Specialist; EMERGENCY PHYSICIAN Student in an Organized Health Care Education/Training Program; FAMILY PHYSICIAN Family Medicine; OTHER PHYSICIAN Internal Medicine Cardiovascular Disease
DX: N17.9 Acute kidney failure, unspecified (principal); E87.20 Acidosis, unspecified; I13.0 Hypertensive heart and chronic kidney disease with heart failure and stage 1 through stage 4 chronic kidney disease, or unspecified chronic kidney disease; R18.8 Other ascites; I5A Non-ischemic myocardial injury (non-traumatic); I48.91 Unspecified atrial fibrillation; I50.9 Heart failure, unspecified; K52.9 Noninfective gastroenteritis and colitis, unspecified; E87.5 Hyperkalemia; N18.30 Chronic kidney disease, stage 3 unspecified; R09.02 Hypoxemia; R06.89 Other abnormalities of breathing; Z11.52 Encounter for screening for COVID-19
CPT/HCPCS: 71045; 74018; 74176; 80048; 80053; 80076; 81003; 81015; 81099; 82570; 83605; 83690; 83880; 83935; 84156; 84300; 84439; 84443; 84484; 84550; 85025; 85027; 85652; 85730; 87086; 87811; 93005; 93306; 93970; 94640; 96360; 97162; 97166; 99291